=== PATIENT | male | born 1995 ===

== ENCOUNTER 2020-02-15 11:57 | Emergency (ER) | payer MEDICAID ==
--- NOTE | 2020-02-15 13:07 | EDM.PDOC ---
ED HPI GENERAL MEDICAL PROBLEM - General Chief Complaint: Back Pain or Injury Stated Complaint: BACK PROBLEMS/WANTS SPINE CHECKED Time Seen by Provider: 02/15/20 12:55 Source of Information: Reports: Patient History Limitations: Reports: No Limitations - History of Present Illness INITIAL COMMENTS - FREE TEXT/NARRATIVE: This 24 yo male patient reports to the ED with lower back pain. The patient reports his symptoms started when he was 18 years old (5 years ago) and have continued to bother him since that time. The patient reports he has been taking Tylenol with little to no symptom relief. The patient reports he was previously in [facility], but is now out of [facility] and would like his back pain examined. The patient reports he has not attempted to visit his primary care facility. The patient denies any recent trauma or acute injury. The patient report he has intermittent numbness of his lower and upper extremities. 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 Lower Back Pain Score (Numeric/FACES): 5 - Related Data Allergies Allergy/AdvReac Type Severity Reaction Status Date / Time No Known Allergies Allergy Verified 02/15/20 12:22 Home Meds: Home Meds Venlafaxine [Effexor] 02/15/20 [History] traZODone HCl [Trazodone HCl] 02/15/20 [History] Past Medical History - Past Health History Medical/Surgical History: Denies Medical/Surgical History Musculoskeletal History: Reports: Back Pain, Chronic Psychiatric History: Reports: Depression Social & Family History - Tobacco Use Tobacco Use Status *Q: Never Tobacco User - Caffeine Use Caffeine Use: Reports: None - Recreational Drug Use Recreational Drug Use: No ED ROS GENERAL - Review of Systems Review Of Systems: Comprehensive ROS is negative, except as noted in HPI. ED EXAM,LOWER BACK PAIN/INJURY - Physical Exam Exam: See Below Exam Limited By: No Limitations General Appearance: Alert, WD/WN, Moderate Distress, Obese Eye Exam: Bilateral Eye: EOMI, Normal Inspection, PERRL Ears: Normal External Exam, Normal Canal, Hearing Grossly Normal, Normal TMs Nose: Normal Inspection, Normal Mucosa, No Blood Throat/Mouth: Normal Inspection, Normal Lips, Normal Teeth, Normal Gums, Normal Oropharynx, Normal Voice, No Airway Compromise Head: Atraumatic, Normocephalic Neck: Normal Inspection, Supple, Non-Tender, Full Range of Motion Respiratory/Chest: No Respiratory Distress, Lungs Clear, Normal Breath Sounds, No Accessory Muscle Use, Chest Non-Tender Cardiovascular: Normal Peripheral Pulses, Regular Rate, Rhythm, No Edema, No Gallop, No JVD, No Murmur, No Rub GI/Abdominal: Normal Bowel Sounds, Soft, Non-Tender, No Organomegaly, No Distention, No Abnormal Bruit, No Mass (Male) Exam: Deferred Rectal (Males) Exam: Deferred Back Exam: Normal Inspection, Full Range of Motion, NT Neurological: Alert, Normal Mood/Affect, CN II-XII Intact, Normal Gait, Normal Reflexes, Oriented x 3. No: Saddle Anesthesia, Difficulty Walking Psychiatric: Normal Affect, Normal Mood Skin Exam: Warm, Dry, Intact, Normal Color, No Rash Lymphatic: No Adenopathy Course - Vital Signs Last Recorded V/S: Last Vital Signs Temp 36.1 C 02/15/20 12:18 Pulse 84 02/15/20 12:18 Resp 18 02/15/20 12:18 BP 133/66 02/15/20 12:18 Pulse Ox 99 02/15/20 12:18 Departure - Departure Time of Disposition: 13:04 Disposition: Home, Self-Care 01 Condition: Fair Clinical Impression: Chronic low back pain with bilateral sciatica Qualifiers: Back pain laterality: bilateral Qualified Code(s): M54.42 - Lumbago with sciatica, left side - Discharge Information *PRESCRIPTION DRUG MONITORING PROGRAM REVIEWED*: Not Applicable *COPY OF PRESCRIPTION DRUG MONITORING REPORT IN PATIENT MILES: Not Applicable Instructions: Chronic Back Pain, [id number] Forms: ED Department Discharge Care Plan Goals: The patient was advised of the examination results during the visit. The patient was given a script for Prednisone (20 mg) #10 to take 2 by mouth daily for 5 days. The patient was encouraged to follow-up with his primary care facility for continued evaluation (MRI) as management. The patient may continue to take over the counter medications for temporary symptom relief. If the patient has any additional symptoms or concerns, the patient should either return to the emergency department or visit his primary care facility. Sepsis Event Note (ED) - Evaluation Sepsis Screening Result: No Definite Risk - Focused Exam Vital Signs: Vital Signs Temp Pulse Resp BP Pulse Ox 02/15/20 12:18 36.1 C 84 18 133/66 99
== END 2020-02-15 13:09 | disposition home or self-care (01) ==
LOC: DL.ED 11:57
DX: M54.42 Lumbago with sciatica, left side (principal); M54.41 Lumbago with sciatica, right side; F32.9 Major depressive disorder, single episode, unspecified; Z79.899 Other long term (current) drug therapy
CPT/HCPCS: 99283

== ENCOUNTER 2020-10-12 09:44 | Emergency (ER) | payer MEDICAID ==
[2020-10-12] MEDS ORDERED: Fluconazole/Normal Saline 200 MG in Premix Bag 1 BAG IV ONE (10:07)
[2020-10-12] MEDS ORDERED: methylPREDNISolone Sodium Succinate 125 MG/2 ML SDV IVPUSH ONE (10:10)
--- NOTE | 2020-10-12 10:12 | EDM.PDOC ---
ED HPI GENERAL MEDICAL PROBLEM - General Chief Complaint: ENT Problem Stated Complaint: SWOLLEN LEFT SIDE OF FACE Time Seen by Provider: 10/12/20 10:02 Source of Information: Reports: Patient, RN, RN Notes Reviewed History Limitations: Reports: No Limitations - History of Present Illness INITIAL COMMENTS - FREE TEXT/NARRATIVE: Basim is a 25 y/o male who presents to the ED via personal vehicle with complaints of pain and swelling to left face. The patient reports he went to bed last night with no symptoms but noticed mild swelling and pain upon waking this morning. Since that time, he feels his face and left upper lip have drastically enlarged. Additionally, he attest to pain in his jaw, throat, and neck when swallowing. He denies throat tightness, difficulty swallowing, or drooling. He denies recent illness, fever, shaking chills, palpitations, nausea, vomiting, or diarrhea. He has taken no medications for his symptoms. The patient notes he snorted methamphetamines two days ago; he denies tobacco or alcohol use. - Related Data Allergies Allergy/AdvReac Type Severity Reaction Status Date / Time No Known Allergies Allergy Verified 02/15/20 12:22 Home Meds: Home Meds Venlafaxine [Effexor] 25 mg PO DAILY 02/15/20 [History] traZODone HCl [Trazodone HCl] 50 mg PO DAILY 02/15/20 [History] Past Medical History - Past Health History Medical/Surgical History: Denies Medical/Surgical History Musculoskeletal History: Reports: Back Pain, Chronic Psychiatric History: Reports: Depression Social & Family History - Caffeine Use Caffeine Use: Reports: None ED ROS ENT - Review of Systems Review Of Systems: Comprehensive ROS is negative, except as noted in HPI. ED EXAM, ENT - Physical Exam Exam: See Below Exam Limited By: No Limitations General Appearance: Alert, Mild Distress (Swelling to face) Eye Exam: Bilateral Eye: EOMI, Normal Inspection, PERRL Ears: Normal External Exam, Normal Canal, Hearing Grossly Normal, Normal TMs Nose: Normal Inspection, Normal Mucousa, No Blood Mouth/Throat: Lip Swelling (To upper left corner lip; To lower right corner lip), Oral Ulcers (White patched lesions to right lower inner lip and left inner upp cheek. ), Throat Pain, Other (No evidence of airway obstruction). No: Drooling, Muffled Voice, Pharyngeal Erythema, Throat Swelling, Tongue Swelling, Tonsillar Erythema, Tonsillar Exudates, Tonsillar Swelling, Uvular Deviation, Uvular Edema Head: Normocephalic, Facial Swelling (Diffuse to left cheek), Facial Tenderness. No: Facial Ecchymosis, Facial Lacerations Neck: Normal Inspection, Supple, Lymphadenopathy (L) (Anterior cervical chain), Lymphadenopathy (R) (Anterior cervical chain), Tender Midline (Anterior) Respiratory/Chest: No Respiratory Distress, Lungs Clear, Normal Breath Sounds, No Accessory Muscle Use, Chest Non-Tender Cardiovascular: Normal Peripheral Pulses, Regular Rate, Rhythm, No Edema, No Gallop, No JVD, No Murmur, No Rub GI/Abdominal: Normal Bowel Sounds, Soft, Non-Tender, No Distention, No Abnormal Bruit, No Mass, Pelvis Stable (Male) Exam: Deferred Rectal (Males) Exam: Deferred Back: Normal Inspection, Full Range of Motion Extremities: Normal Inspection, Normal Range of Motion, Non-Tender, No Pedal Edema, Normal Capillary Refill Neurological: Alert, Oriented, CN II-XII Intact, Normal Cognition, Normal Gait, No Motor/Sensory Deficits Psychiatric: Normal Affect, Normal Mood Skin: Warm, Dry, Intact, Normal Color, No Rash. No: Ecchymosis, Erythema, Jaundice, Mottled, Pallor, Petechiae Course - Vital Signs Last Recorded V/S: Last Vital Signs Temp 98.2 F 10/12/20 10:00 Pulse 88 10/12/20 10:00 Resp 16 10/12/20 10:00 BP 120/65 10/12/20 10:00 Pulse Ox 99 10/12/20 10:00 - Orders/Labs/Meds Orders: Active Orders 24 hr Category Date Time Status CULTURE WOUND [RM] Stat Lab 10/12/20 10:05 Received Meds: Medications Discontinued Medications Generic Name Dose Route Start Last Admin Trade Name Freq PRN Reason Stop Dose Admin Diphenhydramine HCl 50 mg 10/12/20 11:07 10/12/20 11:20 Diphenhydramine 50 Mg/Ml Sdv IVPUSH 10/12/20 11:08 50 mg ONETIME ONE Administration Famotidine 20 mg 10/12/20 11:07 10/12/20 11:20 Famotidine 20 Mg/2 Ml Sdv IVPUSH 10/12/20 11:08 20 mg ONETIME ONE Administration Fluconazole/Sodium Chloride 100 mls @ 100 mls/hr 10/12/20 10:07 10/12/20 10:21 200 mg/ Premix IV 10/12/20 11:06 100 mls/hr ONETIME ONE Administration Clindamycin Phosphate 600 mg/ 104 mls @ 200 mls/hr 10/12/20 12:33 10/12/20 12:45 Sodium Chloride IV 10/12/20 13:04 200 mls/hr ONETIME ONE Administration Iopamidol 100 ml 10/12/20 12:13 10/12/20 12:14 Iopamidol 612 Mg/Ml 100 Ml Bottle IVPUSH 10/12/20 12:14 75 ml ONETIME ONE Administration Methylprednisolone Sodium Succinate 125 mg 10/12/20 10:10 10/12/20 10:21 Methylprednisolone Sodium Succinate 125 Mg/2 Ml Sdv IVPUSH 10/12/20 10:11 125 mg ONETIME ONE Administration - Re-Assessments/Exams Free Text/Narrative Re-Assessment/Exam: 10/12/20 Solu-Medrol 125mg IVP and Fluconazole 200mg IVPB administered for yeast cellulitis; no palpable abscess appreciated. Wound culture sent. Swelling to lips worsening. Benadryl 50mg IVP and Pepcid 20mg IVP administered. Will obtain CT soft tissues neck if no signs of improvement noted. Swelling maintaining. CT obtained. Clindamycin 600mg IVPB administered. Findings of examination and imaging reviewed with patient. Will treat with Medrol Dose pack, Clindamycin, and Fluconazole. Patient instructed to follow up with primary care provider in 2-3, or to present back to ED with worsening symptoms. Patient instructed to not use methamphetamines while infection present. Red flag signs and symptoms which would warrant reevaluation reviewed. Patient verbalized understanding and agreement with the plan of care. Departure - Departure Time of Disposition: 13:13 Disposition: Home, Self-Care 01 Condition: Fair Clinical Impression: Facial cellulitis - Discharge Information *PRESCRIPTION DRUG MONITORING PROGRAM REVIEWED*: Not Applicable *COPY OF PRESCRIPTION DRUG MONITORING REPORT IN PATIENT MILES: Not Applicable Instructions: Cellulitis, Adult, [id number] Forms: ED Department Discharge Additional Instructions: Rx: clindamycin Rx: Fluconazole Rx: Medrol Dose pack 1.) Take all of your antibiotics until gone, unless directed otherwise by infectious disease RN. 2.) Take steroids, as prescribed. 3.) Follow up with primary care provider, or return to the emergency department, with worsening symptoms despite medications. 4.) Eat soft, easy to chew/swallow foods, while you are experiencing swelling. 5.) Do not use methamphetamines while you have this infection. Sepsis Event Note (ED) - Evaluation Sepsis Screening Result: No Definite Risk - Focused Exam Vital Signs: Vital Signs Temp Pulse Resp BP Pulse Ox 10/12/20 10:00 98.2 F 88 16 120/65 99 - My Orders Last 24 Hours: My Active Orders 10/12/20 10:05 CULTURE WOUND [RM] Stat - Assessment/Plan Last 24 Hours: My Active Orders 10/12/20 10:05 CULTURE WOUND [RM] Stat
[2020-10-12] MEDS ORDERED: diphenhydrAMINE 50 MG/ML SDV IVPUSH ONE (11:07)
[2020-10-12] MEDS ORDERED: Famotidine 20 MG/2 ML SDV IVPUSH ONE (11:07)
[2020-10-12] MEDS ORDERED: Iopamidol 612 MG/ML 100 ML Bottle IVPUSH ONE (12:13)
--- NOTE | 2020-10-12 12:27 | CT ---
PROCEDURE INFORMATION: Exam: CT Neck With Contrast Exam date and time: 10/12/2020 11:55 AM Age: 25 years old Clinical indication: Mass, lump, or swelling in neck and other: Edema and pain to left face, extending into neck TECHNIQUE: Imaging protocol: Computed tomography images of the neck with contrast. Radiation optimization: All CT scans at this facility use at least one of these dose optimization techniques: automated exposure control; mA and/or kV adjustment per patient size (includes targeted exams where dose is matched to clinical indication); or iterative reconstruction. Contrast material: ISOVUE 300; Contrast volume: 75 ml; Contrast route: INTRAVENOUS (IV); COMPARISON: No relevant prior studies available. FINDINGS: Nasopharynx: Unremarkable. Oropharynx: Unremarkable. No significant tonsillar enlargement. Hypopharynx: Unremarkable. Larynx: Unremarkable. Normal epiglottis. Retropharyngeal space: Unremarkable. Submandibular/Parotid glands: Normal. Glands are normal in size. Thyroid: Normal. No enlarged or calcified nodules. Lymph nodes: Shotty lymph nodes are present within the neck most likely reactive in nature. Trachea: Visualized trachea is unremarkable. Lungs: Unremarkable as visualized. Bones/joints: Unremarkable. No acute fracture. Soft tissues: There is significant a soft tissue edema in the left facial region. Findings suggestive of probable facial cellulitis. No abscess is currently identified. IMPRESSION: Moderate grade left facial cellulitis without abscess identified.
[2020-10-12] MEDS ORDERED: Clindamycin Phosphate 600 MG in Sodium Chloride 0.9% 100 ML IV ONE (12:33)
== END 2020-10-12 13:26 | disposition home or self-care (01) ==
LOC: DL.ED 09:44
DX: L03.211 Cellulitis of face (principal)
CPT/HCPCS: 70491; 87070; 96365; 96367; 96375; 99283; 99284; J1200; J1450; J2930; J3490; Q9967

== ENCOUNTER 2020-10-13 19:39 | Emergency (ER) | payer MEDICAID ==
[2020-10-13] MEDS ORDERED: Sodium Chloride 0.9% 1,000 ML IV ONE (21:21)
[2020-10-13] MEDS ORDERED: Famotidine 20 MG/2 ML SDV IVPUSH ONE (21:22)
[2020-10-13] MEDS ORDERED: diphenhydrAMINE 25 MG Tab PO ONE (21:22)
[2020-10-13] MEDS ORDERED: Acetaminophen 325 MG Tab PO ONE (21:23)
[2020-10-13 21:58] LABS: ANION GAP 15.9 mEq/L (7-13); CHLORIDE,CL 101 mmol/L (98-107); SODIUM,NA 137 mmol/L (136-145)
[2020-10-13 22:00] LABS: ACETAMINOPHEN 0 ug/mL (10-30 (Therapeutic))
[2020-10-13] MEDS ORDERED: cefTRIAXone 1 GM in Sodium Chloride 0.9% 50 ML IV ONE (22:35)
--- NOTE | 2020-10-13 23:36 | EDM.PDOC ---
ED HPI GENERAL MEDICAL PROBLEM - General Chief Complaint: ENT Problem Stated Complaint: CLELLULITS, MOUTH Time Seen by Provider: 10/13/20 20:30 Source of Information: Reports: Patient History Limitations: Reports: No Limitations - History of Present Illness INITIAL COMMENTS - FREE TEXT/NARRATIVE: reports not eating or drinking today , feels like left cheek more swollen tongue dennis. no known fever, No nausea or vomiting. Gums Pain Score (Numeric/FACES): 6 - Related Data Allergies Allergy/AdvReac Type Severity Reaction Status Date / Time No Known Allergies Allergy Verified 10/13/20 20:19 Home Meds: Home Meds Venlafaxine [Effexor] 25 mg PO DAILY 02/15/20 [History] traZODone HCl [Trazodone HCl] 50 mg PO DAILY 02/15/20 [History] Past Medical History - Past Health History Medical/Surgical History: Denies Medical/Surgical History Musculoskeletal History: Reports: Back Pain, Chronic Psychiatric History: Reports: Depression Social & Family History - Tobacco Use Tobacco Use Status *Q: Current Every Day Tobacco User Years of Tobacco use: 1 Packs/Tins Daily: 0.1 Second Hand Smoke Exposure: Yes - Caffeine Use Caffeine Use: Reports: None - Recreational Drug Use Recreational Drug Use: Yes Drug Use in Last 12 Months: Yes Recreational Drug Type: Reports: Methamphetamine ED ROS ENT - Review of Systems Review Of Systems: Comprehensive ROS is negative, except as noted in HPI. ED EXAM, ENT - Physical Exam Exam: See Below Exam Limited By: No Limitations General Appearance: Alert, Mild Distress Eye Exam: Bilateral Eye: EOMI, PERRL Ears: Normal External Exam Nose: Normal Inspection Mouth/Throat: Normal Lips, Gum Swelling, Oral Ulcers, Tonsillar Erythema (mild), Other (poor dentation, mild swelling left cheek). No: Tonsillar Exudates, Uvular Deviation, Uvular Edema Neck: Normal Inspection, Full Range of Motion Cardiovascular: Normal Peripheral Pulses, Regular Rate, Rhythm GI/Abdominal: Normal Bowel Sounds Neurological: Alert, Oriented Skin: Warm, Dry Course - Vital Signs Last Recorded V/S: Last Vital Signs Temp 97.2 F 10/13/20 20:13 Pulse 94 10/13/20 20:13 Resp 18 10/13/20 20:13 BP 129/81 10/13/20 20:13 Pulse Ox 98 10/13/20 20:13 - Orders/Labs/Meds Labs: Laboratory Tests 10/13/20 10/13/20 10/13/20 Range/Units 21:30 21:30 21:30 WBC 13.4 H (5.0-10.0) 10^3/uL RBC 4.67 (4.6-6.2) 10^6/uL Hgb 13.2 L (14.0-18.0) g/dL Hct 40.7 (40.0-54.0) % MCV 87.2 (80-100) fL MCH 28.3 (27.0-34.0) pg MCHC 32.4 L (33.0-35.0) g/dL Plt Count 233 (150-450) 10^3/uL Sodium 137 (136-145) mmol/L Potassium 3.9 (3.5-5.1) mmol/L Chloride 101 (98-107) mmol/L Carbon Dioxide 24 (21-32) mmol/L Anion Gap 15.9 H (7-13) mEq/L BUN 23 H (7-18) mg/dL Creatinine 1.04 (0.70-1.30) mg/dL Est Cr Clr Drug Dosing 108.58 mL/min Estimated GFR (MDRD) > 60 BUN/Creatinine Ratio 22.1 (No establ ref range) Glucose 108 H (70-99) mg/dL Lactic Acid 0.6 (0.4-2.0) mmol/L Calcium 8.7 (8.5-10.1) mg/dL Total Bilirubin 0.6 (0.2-1.0) mg/dL AST 23 (15-37) U/L ALT 38 (16-63) U/L Alkaline Phosphatase 48 (46-116) U/L Total Protein 7.7 (6.4-8.2) g/dL Albumin 3.9 (3.4-5.0) g/dL Globulin 3.8 Albumin/Globulin Ratio 1.0 Acetaminophen 0 L (10-30 (Therapeutic)) ug/mL Meds: Medications Discontinued Medications Generic Name Dose Route Start Last Admin Trade Name Freq PRN Reason Stop Dose Admin Acetaminophen 650 mg 10/13/20 21:23 10/13/20 21:37 Acetaminophen 325 Mg Tab PO 10/13/20 21:24 650 mg NOW ONE Administration Diphenhydramine HCl 25 mg 07/22/21 21:22 10/13/20 21:37 Diphenhydramine 25 Mg Tab PO 10/13/20 21:23 25 mg ONETIME ONE Administration Famotidine 20 mg 10/13/20 21:22 10/13/20 21:36 Famotidine 20 Mg/2 Ml Sdv IVPUSH 10/13/20 21:23 20 mg ONETIME ONE Administration Sodium Chloride 1,000 mls @ 999 mls/hr 10/13/20 21:21 10/13/20 21:36 Normal Saline IV 10/13/20 22:21 999 mls/hr .BOLUS ONE Administration Ceftriaxone Sodium 1 gm/ 50 mls @ 100 mls/hr 10/13/20 22:35 10/13/20 22:52 Sodium Chloride IV 10/13/20 23:04 100 mls/hr ONETIME ONE Administration Departure - Departure Time of Disposition: 23:32 Disposition: Home, Self-Care 01 Condition: Good Clinical Impression: Facial cellulitis, Oral candidiasis - Discharge Information *PRESCRIPTION DRUG MONITORING PROGRAM REVIEWED*: No *COPY OF PRESCRIPTION DRUG MONITORING REPORT IN PATIENT MILES: No Instructions: Cellulitis, Adult Referrals: PCP,None [Primary Care Provider] - Forms: ED Department Discharge Additional Instructions: continue antibiotic alternate tylenol 500mg and ibuprofen 600mg every 4 hours as needed for discomfort soft diet, bland, low acid avoid sugary fizzy drinks increase fluid intake monitor for fever follow up recheck clinic tomorrow benadryl 25mg every 4 hours as needed Sepsis Event Note (ED) - Evaluation Sepsis Screening Result: No Definite Risk
== END 2020-10-13 23:51 | disposition home or self-care (01) ==
LOC: DL.ED 19:39
DX: L03.211 Cellulitis of face (principal); B37.0 Candidal stomatitis; Z72.0 Tobacco use
CPT/HCPCS: 36415; 80053; 80143; 83605; 85027; 87040; 96365; 96375; 99283; A9270; J0696; J3490; J7030